=== PATIENT | male | born 1985 | race Caucasian/White ===

== ENCOUNTER 2023-11-25 09:50 | Day surgery (SDC) | payer BC, OTHER ==
[~2023-11-25] VITALS: Ht 172.7 cm; Wt 90.9 kg
[2023-11-25 10:56] VITALS: BP 137/73; PULSE 79; RESP 19
[2023-11-25] MEDS ORDERED: BACL20TA PO (11:07)
[2023-11-25] MEDS ORDERED: BETA15CR4 TOP (11:07)
[2023-11-25] MEDS ORDERED: PROCTO-MED (11:07)
[2023-11-25] MEDS ORDERED: HYDR20OI (11:07)
[2023-11-25] MEDS ORDERED: LIDO5JEL9 (11:07)
[2023-11-25] MEDS ORDERED: RUXO60CR TOP (11:07)
[2023-11-25] MEDS ORDERED: ROSU10TA28 PO (11:07)
[2023-11-25] MEDS ORDERED: diphenhydrAMINE 50 mg/ml inj ONE (11:22)
[2023-11-25] MEDS ORDERED: fentaNYL/PF 50MCG/1 ML 2ML syringe ONE ×2 (11:22)
[2023-11-25] MEDS ORDERED: MIDAZolam 1 MG/ML 5ML VIAL ONE (11:22)
[2023-11-25 12:02] VITALS: BP 108/69; PULSE 89; RESP 15; O2SAT 96
[2023-11-25 12:12] VITALS: BP 112/71; PULSE 97; RESP 12; O2SAT 97
[2023-11-25 12:22] VITALS: BP 114/73; PULSE 87; RESP 13; O2SAT 96
[2023-11-25 12:32] VITALS: BP 124/79; PULSE 94; RESP 16; O2SAT 98
== END 2023-11-25 12:37 | disposition home or self-care (01) ==
LOC: GI LAB 09:50
PROVIDERS: ATTEND Internal Medicine Gastroenterology
DX: K92.1 Melena (principal); K64.8 Other hemorrhoids
CPT/HCPCS: 45378; 99152; J1200; J2250; J3010; J7030; Z7512; A4620